=== PATIENT | male | born 1970 | race Caucasian/White ===

== ENCOUNTER 2018-08-13 04:10 | Observation (INO) ==
--- NOTE | 2018-08-13 04:36 | Emergency Department Note ---
Disposition Clinical Impression: Left-sided weakness Disposition: Still a Patient Condition: Fair Referrals: Ángel Kaur MD [Primary Care Provider] - Forms: ED Satisfaction Letter Time of Disposition: 06:21 Neuro HPI - General Chief Complaint: ED Neuro Symptoms/Deficit Stated Complaint: poss stroke Time Seen by Provider: 08/13/18 04:21 Source: patient, EMS Mode of arrival: EMS Limitations: no limitations Nursing Notes Reviewed: Yes Vital Signs Reviewed: Yes - History of Present Illness HPI Narrative: 48-year-old male history of epilepsy presents emergency department via EMS for concern of stroke. Patient presents with left-sided weakness. His last well- known was approximately 12 hours ago around 1630 prior to going to sleep. He woke up around 0230 approximately 2 hours prior to arrival trying to get out of bed when he swung his legs around he knows his legs were week and was unable to walk. He reports that similar history of this and the past may be due to his seizure. He denies any recent seizure activity and none today. He denies any injury or trauma. Denies any other pain at this time such as headache, neck pain, chest pain, shortness of breath, abdominal pain, nausea or vomiting. He has a VNS magnet Symptom Onset Unknown: Yes Location: left arm, left leg History of same: No Severity: moderate - Related Data Allergies/Adverse Reactions: Allergies Allergy/AdvReac Type Severity Reaction Status Date / Time phenytoin [From Dilantin] Allergy See Verified 03/01/17 18:41 Comments tramadol Allergy See Verified 03/01/17 18:41 Comments All systems ED: reviewed and negative except as stated. Review of Systems: As Per HPI Constitutional: Reports: weakness (Left side). Denies: fever, chills Eyes: Denies: vision change ENT ED: Denies: congestion Cardiovascular: Denies: chest pain, syncope Respiratory: Denies: dyspnea Gastrointestinal: Denies: abdominal pain, nausea, vomiting Genitourinary: Denies: dysuria Musculoskeletal: Denies: back pain, neck pain Neurological: Reports: weakness. Denies: headache, confusion Psychiatric: Denies: anxiety, depression Past Medical History - Past Medical History Attestation: Yes The following information was validated with the patient. Source: patient, obtained from family Medical history: Reports: GERD, hyperlipidemia, seizures, other Psychiatric history: Reports: no psych history - Social History Smoking Status: Never smoker Smokeless Tobacco Status: No Alcohol use: Reports: none Drug use: Reports: none Physical Exam - General Limitations: no limitations General appearance: alert, in no apparent distress - Head Head exam: atraumatic, normocephalic, normal inspection - Eye Eye exam: Present: normal appearance, PERRL, EOMI. Absent: nystagmus - ENT ENT exam: normal exam, normal oropharynx, mucous membranes moist - Expanded ENT Exam External ear exam: Present: normal external inspection Mouth exam: Present: normal external inspection Teeth exam: Present: normal inspection Throat exam: Present: normal inspection - Neck Neck exam: Present: normal inspection, full ROM, trachea midline. Absent: tenderness - Chest Chest inspection: Present: normal inspection, symmetric chest wall rise, other ( seizure VNS magnet) - Respiratory Respiratory exam: Present: normal lung sounds bilaterally. Absent: respiratory distress, wheezes - Cardiovascular Cardiovascular exam: Present: regular rate, normal rhythm, normal heart sounds - Expanded Cardiovascular Exam Peripheral pulses: 2+: radial (R), radial (L) - Abdominal Exam Abdominal exam: Present: soft, Non-Tender, normal bowel sounds. Absent: tenderness, distention, guarding, rebound, rigidity - Extremities Exam Extremities exam: Present: normal inspection, full ROM, normal capillary refill. Absent: tenderness, pedal edema - Neurological Exam Neurological exam: Present: alert, oriented X3, motor sensory deficit (left side dullness) - Expanded Neurological Exam Patient oriented to: Present: person, place, time Speech: Present: fluid speech Cranial nerves: EOM function (II, III, IV, ): Normal, facial sensation (V): Normal, facial palsy (VII): Normal, gag reflex (IX): Normal, spinal accessory function (XI): Normal, tongue deviation (XII): Normal Cerebellar function: finger to nose: Normal, heel to dodd: Abnormal Left Motor strength - LUE: 5/5 Motor strength - RUE: 5/5 Motor strength - LLE: 4/5 Motor strength - RLE: 5/5 Upper motor neuron exam: demetrice neglect: Absent bilaterally, pronator drift: Absent bilaterally Sensory exam upper extremity: light touch: Normal Sensory exam lower extremity: light touch: Normal Coma Scale Eye Opening: Spontaneous Coma Scale Motor Response: Obeys Commands Coma Scale Verbal Response: Oriented Coma Scale Total: 15 - Psychiatric Psychiatric exam: Present: normal affect, normal mood - Skin Skin exam: Present: warm, dry, intact, normal color. Absent: rash, cyanosis, diaphoresis Course Course Narrative: Patient presents with left-sided weakness presumed last well-known 12 hours ago. He is not a TPA candidate at this time. Stroke alert was initiated on arrival. He has noticeable weakness to his left upper and lower extremity. 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 He was able to lift his extremities above gravity without drift. He has some live ataxia to the left lower extremity. He is awake alert and oriented person place and time. His initial NIH score is to given his sensory deficit and limb ataxia. Glucose 130. Stroke workup initiated. - Reevaluation(s) Reevaluation #1: Patient reports improvement of his symptoms. CT did not reveal any hemorrhage. Tele-stroke with [facility] not TPA candidate no acute intervention necessary at this time recommendation for admission. Patient administered aspirin. Will obtain CTA head and neck and plan for admission. No further questions by family or patient. Time: 06:23 Reevaluation #2: Patient is pending additional imaging prior to admission. Patient will be signed out to daytime physicians Dr. Del Rosario and Teo pending imaging results and final disposition. Impression is left sided weakness concerning for stroke versus seizure. - Consultations Consultation #1: Spoke with [facility]ology regarding CT scan, no acute findings, no hemorrhage Time: 04:39 Consultation #2: Dr. Wright from [facility] evaluating patient at bedside via TeleStroke. After examination assessment agree with current plan that patient is not be a candidate. NIH score for change in sensation and ataxia. Recommend admission with additional imaging and evaluation. Recommend CT angiogram of the head neck and likely MRI of the brain. After discussion with the patient and family they wish to stay here at [facility] for further evaluation for left-sided weakness and likely stroke. At this time patient will obtain CT imaging prior to admission. He continues to reports gradual improvement of his weakness and return of his sensation. His NIH score remains added to given his ataxia of his left lower extremity and Time: 04:47 Vital Signs Temperature 98.3 F 08/13/18 04:11 Pulse Rate 78 08/13/18 04:11 Respiratory Rate 16 08/13/18 04:11 Blood Pressure 157/86 08/13/18 04:11 O2 Sat by Pulse Oximetry 97 09/12/18 04:11 Temperature 98.3 F 08/13/18 04:11 Pulse Rate 79 08/13/18 07:34 Respiratory Rate 16 08/13/18 07:34 Blood Pressure 153/82 08/13/18 07:34 O2 Sat by Pulse Oximetry 98 08/13/18 07:34 Oxygen Delivery Oxygen Delivery Room Air Neuro Symptoms/Deficit - MDM Narrative Medical decision making narrative: Patient was discussed with my attending physician who agrees with ED management and final disposition. They independently evaluated the patient. Please refer to their attestation to this encounter for additional information. This note was generated by [employer] voice recognition software and as a result grammatical or spelling errors may occur using this program. - Medical Records Medical records reviewed: Yes I reviewed the patient's medical records. - Lab Data Lab results reviewed: Yes I reviewed the patient's lab results. Result diagrams: 08/13/18 04:35 08/13/18 04:35 Lab Results 08/13/18 08/13/18 08/13/18 Range/Units 04:13 04:35 04:35 WBC 8.5 (4.3-11.1) K/mcL RBC 6.09 H (4.19-5.50) M/mcL Hgb 18.3 H (12.9-16.9) g/dL Hct 52.9 H (37.5-50.1) % MCV 86.9 (83.0-100.0) fL MCH 30.0 (28.0-33.3) pg MCHC 34.6 (31.6-35.5) g/dL RDW 15.0 H (11.5-14.5) % Plt Count 322 (140-400) K/mcL MPV 10.3 (9.4-12.4) fL Immature Gran % 0.1 (0-4) % Seg Neutrophils % 64.4 % Lymphocytes % 22.9 % Monocytes % 7.8 % Eosinophils % 3.5 % Basophils % 1.3 % Neutrophils # 5.5 (1.6-8.9) K/mcL Lymphocytes # 1.9 (0.6-4.6) K/mcL Monocytes # 0.7 (0.0-1.3) K/mcL Eosinophils # 0.3 (0.0-0.6) K/mcL Basophils # 0.1 (0.0-0.2) K/mcL PT 11.9 (9.4-12.1) Seconds INR 1.1 APTT 38.7 H (26.0-36.0) Seconds Sodium (136-145) mEq/L Potassium (3.5-5.1) mEq/L Chloride (98-107) mEq/L Carbon Dioxide (23-29) mEq/L BUN (6-20) mg/dL Creatinine (0.70-1.30) mg/dL Est GFR ( Amer) (> 60) Est GFR (Non-Af Amer) (> 60) BUN/Creatinine Ratio (6-26) Glucose (70-105) mg/dL POC Glucose 130 H (70-99) mg/dL Calculated Osmolality (280-300) Calcium (8.6-10.3) mg/dL Troponin I (< 0.04) ng/mL 08/13/18 Range/Units 04:35 WBC (4.3-11.1) K/mcL RBC (4.19-5.50) M/mcL Hgb (12.9-16.9) g/dL Hct (37.5-50.1) % MCV (83.0-100.0) fL MCH (28.0-33.3) pg MCHC (31.6-35.5) g/dL RDW (11.5-14.5) % Plt Count (140-400) K/mcL MPV (9.4-12.4) fL Immature Gran % (0-4) % Seg Neutrophils % % Lymphocytes % % Monocytes % % Eosinophils % % Basophils % % Neutrophils # (1.6-8.9) K/mcL Lymphocytes # (0.6-4.6) K/mcL Monocytes # (0.0-1.3) K/mcL Eosinophils # (0.0-0.6) K/mcL Basophils # (0.0-0.2) K/mcL PT (9.4-12.1) Seconds INR APTT (26.0-36.0) Seconds Sodium 138 (136-145) mEq/L Potassium 3.5 (3.5-5.1) mEq/L Chloride 103 (98-107) mEq/L Carbon Dioxide 26 (23-29) mEq/L BUN 7 (6-20) mg/dL Creatinine 0.93 (0.70-1.30) mg/dL Est GFR ( Amer) > 60 (> 60) Est GFR (Non-Af Amer) > 60 (> 60) BUN/Creatinine Ratio 8 (6-26) Glucose 119 H (70-105) mg/dL POC Glucose (70-99) mg/dL Calculated Osmolality 285 (280-300) Calcium 9.7 (8.6-10.3) mg/dL Troponin I < 0.03 (< 0.04) ng/mL - Radiology Data Radiology results reviewed: Yes I reviewed the patient's radiology results. Head CT 08/13/18 04:25 IMPRESSION: No acute intracranial abnormality. D/ / Reynaldo Boogie MD / Reynaldo Boogie MD Interpreting Provider: Reynaldo Boogie MD - EKG Data EKG attestation: Yes I reviewed and interpreted this EKG. EKG results narrative: EKG performed 417 normal sinus rhythm 80 beats per minute, normal axis, good R wave progression, no ST elevation or depression, intervals are within normal limits NM interval 188 QRS 104 QT 426. No acute ischemic changes. NIH Stroke Scale - Level of Consciousness LOC: Alert - LOC Questions LOC Questions: Answers both correctly - LOC Commands LOC Commands: Performs both correctly - Best Gaze Best Gaze: Normal - Visual Visual: No visual loss - Facial Palsy Facial Palsy: Normal - Motor Arms Motor Arm-Left: No drift for 10 seconds Motor Arm-Right: No drift for 10 seconds - Motor Legs Motor Leg-Left: No drift for 5 seconds Motor Leg-Right: No drift for 5 seconds - Limb Ataxia Limb Ataxia: Present in ONE limb - Sensory Sensory: Mild to moderate loss, "not as sharp" - Best Language Best Language: No aphasia - Dysarthria Dysarthria: Normal - Extinction and Inattention Extinction and Inattention: Normal - NIHSS Total Score NIHSS Total Score: 2 TPA Checklist - Eligibilty for IV tPA 1. LKW equal to or less than 4.5 hours be before treatment: No S.B.A.R. - S.B.A.R. Situation: Demographics, MOA Background: Presenting Complaint, Relevant PMH, Meds, & Allergies Assessment: Vital Signs, Course and respsone to treatment, Exam Concerns, Patient/Family Expectation, Pertinant Lab Results, Outstanding Labs Recommendation: Barrier(s) to disposition, Recommendation based on pending studies, treatments, or consults S.B.A.R. Report Given to: Annalisa Luque Repor Time: 07:00
[2018-08-13 04:45] LABS: Basophils # 0.1 K/mcL (0.0-0.2); Basophils % 1.3 %; Eosinophils # 0.3 K/mcL (0.0-0.6); Eosinophils % 3.5 %; Hematocrit 52.9 % (37.5-50.1); Hemoglobin 18.3 g/dL (12.9-16.9); Immature Granulocytes % 0.1 % (0-4); Lymphocytes # 1.9 K/mcL (0.6-4.6); Lymphocytes % 22.9 %; Mean Corpuscular HGB Conc 34.6 g/dL (31.6-35.5); Mean Corpuscular Volume 86.9 fL (83.0-100.0); Mean Platelet Volume 10.3 fL (9.4-12.4); Monocytes # 0.7 K/mcL (0.0-1.3); Monocytes % 7.8 %; Neutrophils # 5.5 K/mcL (1.6-8.9); Platelet Count 322 K/mcL (140-400); Red Blood Count 6.09 M/mcL (4.19-5.50); Segmented Neutrophils % 64.4 %
[2018-08-13 04:48] LABS: INR 1.1; Prothrombin Time 11.9 Seconds (9.4-12.1)
[2018-08-13 04:51] LABS: Activated Partial Thrombo Time 38.7 Seconds (26.0-36.0)
[2018-08-13 05:03] LABS: BUN/Creatinine Ratio 8 (6-26); Blood Urea Nitrogen 7 mg/dL (6-20); Calcium 9.7 mg/dL (8.6-10.3); Carbon Dioxide 26 mEq/L (23-29); Chloride 103 mEq/L (98-107); Glucose 119 mg/dL (70-105); Osmolality,Calculated 285 (280-300); Potassium 3.5 mEq/L (3.5-5.1); Sodium 138 mEq/L (136-145); Troponin I < 0.03 ng/mL (< 0.04); eGFR For Non-African Americans > 60 (> 60)
[2018-08-13] MEDS ORDERED: Isovue-370 500 ML INFUS..BTL IV ONE (05:14)
[2018-08-13] MEDS ORDERED: Aspirin 325 MG TABLET PO ONE (06:57)
--- NOTE | 2018-08-13 07:37 | Emergency Department Note ---
Disposition Clinical Impression: Left-sided weakness Disposition: Still a Patient Condition: Fair Referrals: Ángel Kaur MD [Primary Care Provider] - Forms: ED Satisfaction Letter General Adult HPI - General Chief complaint: ED Neuro Symptoms/Deficit Stated complaint: poss stroke Time Seen by Provider: 08/13/18 04:21 Source: patient, EMS Mode of arrival: EMS Limitations: no limitations Nursing Notes Reviewed: Yes Vital Signs Reviewed: Yes - History of Present Illness Pain Scale: 0 - Related Data Allergies Allergy/AdvReac Type Severity Reaction Status Date / Time phenytoin [From Dilantin] Allergy See Verified 03/01/17 18:41 Comments tramadol Allergy See Verified 03/01/17 18:41 Comments Constitutional: Reports: weakness (Left side). Denies: fever, chills Eyes: Denies: vision change ENT ED: Denies: congestion Cardiovascular: Denies: chest pain, syncope Respiratory: Denies: dyspnea Gastrointestinal: Denies: abdominal pain, nausea, vomiting Genitourinary: Denies: dysuria Musculoskeletal: Denies: back pain, neck pain Neurological: Reports: weakness. Denies: headache, confusion Psychiatric: Denies: anxiety, depression Past Medical History - Past Medical History Medical history: Reports: GERD, hyperlipidemia, seizures, other Psychiatric history: Reports: no psych history - Social History Smoking Status: Never smoker Smokeless Tobacco Status: No Alcohol use: Reports: none Drug use: Reports: none Physical Exam - General Limitations: no limitations General appearance: alert, in no apparent distress Course Vital Signs Temperature 98.3 F 08/13/18 04:11 Pulse Rate 78 08/13/18 04:11 Respiratory Rate 16 08/13/18 04:11 Blood Pressure 157/86 08/13/18 04:11 O2 Sat by Pulse Oximetry 97 08/13/18 04:11 Temperature 98.3 F 08/13/18 04:11 Pulse Rate 79 08/13/18 07:34 Respiratory Rate 16 08/13/18 07:34 Blood Pressure 153/82 08/13/18 07:34 O2 Sat by Pulse Oximetry 98 08/13/18 07:34 Oxygen Delivery Oxygen Delivery Room Air Medical Decision Making - Lab Data Lab results reviewed: Yes I reviewed the patient's lab results. Result diagrams: 08/13/18 04:35 08/13/18 04:35 Lab Results 08/13/18 08/13/18 08/13/18 Range/Units 04:35 04:35 04:35 WBC 8.5 (4.3-11.1) K/mcL RBC 6.09 H (4.19-5.50) M/mcL Hgb 18.3 H (12.9-16.9) g/dL Hct 52.9 H (37.5-50.1) % MCV 86.9 (83.0-100.0) fL MCH 30.0 (28.0-33.3) pg MCHC 34.6 (31.6-35.5) g/dL RDW 15.0 H (11.5-14.5) % Plt Count 322 (140-400) K/mcL MPV 10.3 (9.4-12.4) fL Immature Gran % 0.1 (0-4) % Seg Neutrophils % 64.4 % Lymphocytes % 22.9 % Monocytes % 7.8 % Eosinophils % 3.5 % Basophils % 1.3 % Neutrophils # 5.5 (1.6-8.9) K/mcL Lymphocytes # 1.9 (0.6-4.6) K/mcL Monocytes # 0.7 (0.0-1.3) K/mcL Eosinophils # 0.3 (0.0-0.6) K/mcL Basophils # 0.1 (0.0-0.2) K/mcL PT 11.9 (9.4-12.1) Seconds INR 1.1 APTT 38.7 H (26.0-36.0) Seconds Sodium 138 (136-145) mEq/L Potassium 3.5 (3.5-5.1) mEq/L Chloride 103 (98-107) mEq/L Carbon Dioxide 26 (23-29) mEq/L BUN 7 (6-20) mg/dL Creatinine 0.93 (0.70-1.30) mg/dL Est GFR ( Amer) > 60 (> 60) Est GFR (Non-Af Amer) > 60 (> 60) BUN/Creatinine Ratio 8 (6-26) Glucose 119 H (70-105) mg/dL Calculated Osmolality 285 (280-300) Calcium 9.7 (8.6-10.3) mg/dL Troponin I < 0.03 (< 0.04) ng/mL - Radiology Data Radiology results reviewed: Yes I reviewed the patient's radiology results. Head CT 08/13/18 04:25 IMPRESSION: No acute intracranial abnormality. D/ / 08/13/2018 07:18:21 Reynaldo Boogie MD / [email or web address] Interpreting Provider: Reynaldo Boogie MD - EKG Data EKG #1 EKG attestation: Yes I reviewed and interpreted this EKG. EKG results narrative: EKG shows a normal sinus rhythm with ventricular rate of 80. No acute ST segment elevation or depression. No arrhythmia or ectopy. Critical Care Time Critical Care Time: Yes Total Critical Care Time: 45 Attestation: Critical care performed: Time is exclusive of separately billable procedures. Time includes: direct patient care, patient reassessment, coordination of patient care, interpretation of data (laboratory data, radiology data, and respiratory data), review of patient's medical records, medical consultation and documentation of patient care. Procedures included in critical care time: Procedures excluded from critical care time: Attestation Statement - Attestation Attestation: I, Rafy Garnica MD, personally evaluated this patient and discussed their management with the resident physician. I reviewed the resident's note and agree with the documented findings, medical decision making, and plan of care. 48-year-old male presents to the emergency department with a complaint of left- sided weakness. Last known well was 4 PM yesterday when patient went to bed. He awoke about 2:30 this morning and went to get out of bed and fell to the left side. He states he was unable to use his left side. No difficulty with speech or swallowing. Symptoms have improved since onset. He has had somewhat similar episodes in the past but not as bad. He does have a history of seizure disorder and does not know if he maybe had a seizure during his sleep. He admits to some mild headache. Otherwise he denies any pain. No chest pain or shortness of breath. No fever. He has not been ill recently. On examination patient is a well-developed well-nourished male in no acute distress. He is alert and oriented 3. There is no cyanosis or diaphoresis. Speech is clear. No facial droop. He does have mild motor weakness of the left upper and lower extremity. Neck is supple and nontender with no meningismus. Breath sounds are clear and equal bilaterally. Heart regular rate and rhythm. Abdomen soft and nontender with normal bowel sounds. Head CT without contrast was negative. Labs reviewed. No acute changes on EKG. A stroke alert was called and after evaluation by the stroke neurologist from [facility] via the stroke robot it was felt patient was not a TPA candidate. They recommended obtaining a CTA of the head and neck and if no significant abnormalities patient could be managed here. Patient agreeable with this plan. At shift change patient is still awaiting the CTA of the head and neck and is signed out to the oncoming dayshift team, Dr. Del Rosario and Dr. Liang Bruce.
--- NOTE | 2018-08-13 07:45 | Emergency Department Note ---
Disposition Clinical Impression: Left-sided weakness Disposition: Admitted As Inpatient Condition: Fair Referrals: Ángel Kaur MD [Primary Care Provider] - Forms: ED Satisfaction Letter Time of Disposition: 08:22 General Adult HPI - General Chief complaint: ED Neuro Symptoms/Deficit Stated complaint: poss stroke Time Seen by Provider: 08/13/18 04:21 Source: patient, EMS Mode of arrival: EMS Limitations: no limitations Nursing Notes Reviewed: Yes Vital Signs Reviewed: Yes - History of Present Illness Pain Scale: 0 - Related Data Allergies Allergy/AdvReac Type Severity Reaction Status Date / Time phenytoin [From Dilantin] Allergy See Verified 03/01/17 18:41 Comments tramadol Allergy See Verified 03/01/17 18:41 Comments Constitutional: Reports: weakness (Left side). Denies: fever, chills Eyes: Denies: vision change ENT ED: Denies: congestion Cardiovascular: Denies: chest pain, syncope Respiratory: Denies: dyspnea Gastrointestinal: Denies: abdominal pain, nausea, vomiting Genitourinary: Denies: dysuria Musculoskeletal: Denies: back pain, neck pain Neurological: Reports: weakness. Denies: headache, confusion Psychiatric: Denies: anxiety, depression Past Medical History - Past Medical History Medical history: Reports: GERD, hyperlipidemia, seizures, other Psychiatric history: Reports: no psych history - Social History Smoking Status: Never smoker Smokeless Tobacco Status: No Alcohol use: Reports: none Drug use: Reports: none Physical Exam - General Limitations: no limitations General appearance: alert, in no apparent distress Course Course Narrative: Assumed care from day physician's Dr. Parker and Dr. Garnica. Briefly, patient woke up with left-sided weakness 2 hours prior to arrival. His last known well is over 12 hours ago. NIH score of 2 for ataxia and decreased sensation. CVA workup including labs, CT scan unremarkable so far. He is pending a CTA of the head and neck. - Reevaluation(s) Reevaluation #1: Imaging unremarkable. We will admit for CVA workup. I discussed with the hospitalist was accepted patient for admission. Patient is unable to get an MRI due to his vagal nerve stimulator. States last time they did get someone to turn it off to get him over to an MRI but then he was unable to tolerate the actual MRI even with being medicated. Time: 08:21 Vital Signs Temperature 98.3 F 08/13/18 04:11 Pulse Rate 78 08/13/18 04:11 Respiratory Rate 16 08/13/18 04:11 Blood Pressure 157/86 08/13/18 04:11 O2 Sat by Pulse Oximetry 97 08/13/18 04:11 Temperature 98.3 F 08/13/18 04:11 Pulse Rate 79 08/13/18 07:34 Respiratory Rate 16 08/13/18 07:34 Blood Pressure 153/82 08/13/18 07:34 O2 Sat by Pulse Oximetry 98 08/13/18 07:34 Oxygen Delivery Oxygen Delivery Room Air Medical Decision Making - Medical Records Medical records reviewed: Yes I reviewed the patient's medical records. - Lab Data Lab results reviewed: Yes I reviewed the patient's lab results. Result diagrams: 08/13/18 04:35 08/13/18 04:35 Lab Results 08/13/18 08/13/18 08/13/18 Range/Units 04:13 04:35 04:35 WBC 8.5 (4.3-11.1) K/mcL RBC 6.09 H (4.19-5.50) M/mcL Hgb 18.3 H (12.9-16.9) g/dL Hct 52.9 H (37.5-50.1) % MCV 86.9 (83.0-100.0) fL MCH 30.0 (28.0-33.3) pg MCHC 34.6 (31.6-35.5) g/dL RDW 15.0 H (11.5-14.5) % Plt Count 322 (140-400) K/mcL MPV 10.3 (9.4-12.4) fL Immature Gran % 0.1 (0-4) % Seg Neutrophils % 64.4 % Lymphocytes % 22.9 % Monocytes % 7.8 % Eosinophils % 3.5 % Basophils % 1.3 % Neutrophils # 5.5 (1.6-8.9) K/mcL Lymphocytes # 1.9 (0.6-4.6) K/mcL Monocytes # 0.7 (0.0-1.3) K/mcL Eosinophils # 0.3 (0.0-0.6) K/mcL Basophils # 0.1 (0.0-0.2) K/mcL PT 11.9 (9.4-12.1) Seconds INR 1.1 APTT 38.7 H (26.0-36.0) Seconds Sodium (136-145) mEq/L Potassium (3.5-5.1) mEq/L Chloride (98-107) mEq/L Carbon Dioxide (23-29) mEq/L BUN (6-20) mg/dL Creatinine (0.70-1.30) mg/dL Est GFR ( Amer) (> 60) Est GFR (Non-Af Amer) (> 60) BUN/Creatinine Ratio (6-26) Glucose (70-105) mg/dL POC Glucose 130 H (70-99) mg/dL Calculated Osmolality (280-300) Calcium (8.6-10.3) mg/dL Troponin I (< 0.04) ng/mL 08/13/18 Range/Units 04:35 WBC (4.3-11.1) K/mcL RBC (4.19-5.50) M/mcL Hgb (12.9-16.9) g/dL Hct (37.5-50.1) % MCV (83.0-100.0) fL MCH (28.0-33.3) pg MCHC (31.6-35.5) g/dL RDW (11.5-14.5) % Plt Count (140-400) K/mcL MPV (9.4-12.4) fL Immature Gran % (0-4) % Seg Neutrophils % % Lymphocytes % % Monocytes % % Eosinophils % % Basophils % % Neutrophils # (1.6-8.9) K/mcL Lymphocytes # (0.6-4.6) K/mcL Monocytes # (0.0-1.3) K/mcL Eosinophils # (0.0-0.6) K/mcL Basophils # (0.0-0.2) K/mcL PT (9.4-12.1) Seconds INR APTT (26.0-36.0) Seconds Sodium 138 (136-145) mEq/L Potassium 3.5 (3.5-5.1) mEq/L Chloride 103 (98-107) mEq/L Carbon Dioxide 26 (23-29) mEq/L BUN 7 (6-20) mg/dL Creatinine 0.93 (0.70-1.30) mg/dL Est GFR ( Amer) > 60 (> 60) Est GFR (Non-Af Amer) > 60 (> 60) BUN/Creatinine Ratio 8 (6-26) Glucose 119 H (70-105) mg/dL POC Glucose (70-99) mg/dL Calculated Osmolality 285 (280-300) Calcium 9.7 (8.6-10.3) mg/dL Troponin I < 0.03 (< 0.04) ng/mL - Radiology Data Radiology results reviewed: Yes I reviewed the patient's radiology results. Head CT 08/13/18 04:25 IMPRESSION: No acute intracranial abnormality. D/ / 08/13/2018 07:18:21 Reynaldo Boogie MD / lori Interpreting Provider: Reynaldo Boogie MD Head CTA 08/13/18 05:14 IMPRESSION: No flow limiting stenosis or occlusion involving the major intracranial or extracranial arterial vasculature. D/ / Raul Villanueva MD / Raul Villanueva MD Interpreting Provider: Raul Villanueva MD Neck CTA 08/13/18 05:14 IMPRESSION: No flow limiting stenosis or occlusion involving the major intracranial or extracranial arterial vasculature. D/ / Raul Villanueva MD / Raul Villanueva MD Interpreting Provider: Raul Villanueva MD - EKG Data EKG #1 EKG attestation: Yes I reviewed and interpreted this EKG. EKG results narrative: EKG done at 414 shows normal sinus rhythm with a rate of [address] elevation or depression noted. Normal axis. Poor wandering baseline artifact.
[2018-08-13] MEDS ORDERED: Naloxone 0.4 MG/ML INJ IVP PRN (08:25)
--- NOTE | 2018-08-13 08:39 | Emergency Department Note ---
START Narrative - START START: Patient was signed out to me from the night physician. Plan was to follow-up CTA of the head and neck. Admit the patient. CT of the head and neck is nonacute. No acute pathology. Patient is doing well. He has not a TPA candidate. He does have a underlying history of seizures. It is unclear whether he had a seizure prior to this. Admit.
[2018-08-13] MEDS: lamoTRIgine 100 MG TABLET PO SCH ×2 (09:00→20:17)
--- NOTE | 2018-08-13 10:16 | Electrocardiograph Report ---
[facility] Test Date: 2018-08-13 Pat Name: Myels Chavez Department: [id number] Room: Gender: M Search Advertising Strategist: : 1970 Requested By: Liang Bruce Order Number: [id number] Reading MD: Tunde Hauser Measurements Intervals [place] Rate: 80 P: 60 [place]: 198 QRS: 9 QRSD: 104 T: 52 QT: 426 QTc: 492 Interpretive Statements Sinus rhythm Consider left atrial enlargement Borderline prolonged QT interval Electronically Signed On 08-13-2018 10:15:11 EDT by Tunde Hauser
--- NOTE | 2018-08-13 10:34 | Internal Med History&Physical ---
Date of Encounter: 08/13/18 Time of Encounter: 10:00 Internal Medicine - H&P: HPI Chief complaint: left sided weakness and dizziness of 1 day duration History of present illness: Mr. Chavez is a 48 year old male with pmh of seizures/ epilepsy s/p vagal nerves stimulator implantation presenting with complaints of waking up with left sided weakness around 2.30am today. Patient notes he had an uneventful day and went to sleep around 4.30pm the previous day. When he woke up he was unable to stand up and says he kept falling over to his right side and feels like he couldn't move his left hand and left leg and was dizzy. He called his daughter who came in to the house at around 2.45am and noted he had no strength on his left side and couldn't squeeze her hands with his left hand ad couldn't wiggle his toes. She also noted he couldn't recall any events from the previous day. EMS was therefore called. At this time, he seems to have regained full strength and sensation in his left side which he says gradually returned. In the ER, [facility] was contacted who determined he is not a TPA candiate. CT head and CTA head came back negative. He was given one dose of aspirin 325mg. Past Med Surg Social Fam HX - Past Medical History Medical history: GERD, hyperlipidemia, seizures, other Psychiatric history: no psych history - Past Surgical History Additional surgical history: VNS implantation, kidney stent - Social History Smoking Status: Never smoker Smokeless Tobacco Status: No Alcohol use: none Drug use: none Internal Medicine - H&P: Meds 3 Allergy/AdvReac Type Severity Reaction Status Date / Time phenytoin [From Dilantin] Allergy See Verified 03/01/17 18:41 Comments tramadol Allergy See Verified 03/01/17 18:41 Comments All Systems PM: A 10-system review of systems was performed and is negative for pertinent findings except as documented above in the HPI. - Constitutional Constitutional: no chills, no fever(s), no night sweats - EENT Eyes: no change in vision, no discharge, no pain, no photophobia Ears: no ear discharge, no ear pain, no tinnitus Nose, mouth and throat: no dysphagia, no nasal discharge, no neck pain, no sore throat - Cardiovascular Cardiovascular ROS IM: no chest pain, no diaphoresis, no dyspnea, no lightheadedness, no palpitations, no syncope - Respiratory Respiratory: no cough, no dyspnea, no wheezing, no excessive phlegm production - Gastrointestinal Gastrointestinal: no abdominal pain, no diarrhea, no hematemesis, no hematochezia, no melena, no nausea, no vomiting - Musculoskeletal Musculoskeletal ROS IM: no numbness, no tingling - Integumentary Integumentary IM: no rash, no unusual bruising - Neurological Neurological ROS: focal weakness, memory loss, numbness, no confusion, no convulsions, no tingling, no tremor(s) - Hematologic/Lymphatic Hematologic/Lymphatic: no easy bruising - Constitutional Vitals: Temp Pulse Resp BP Pulse Ox 98.3 F 79 16 153/82 98 08/13/18 04:11 08/13/18 07:34 08/13/18 07:34 08/13/18 07:34 08/13/18 07:34 Exam: NAD - Head Head exam: Present: atraumatic, normocephalic - Eye Eye exam: Present: PERRL, conjuntiva pink, sclera anicteric Pupils: Present: PERRL - Neck Neck exam general surgery: Present: supple, trachea midline. Absent: lymphadenopathy - Respiratory Respiratory exam: Present: CTAB. Absent: accessory muscle use, rales, rhonchi, wheezes - Cardiovascular Cardiovascular exam: Present: RRR, +S1, +S2. Absent: diastolic murmur, gallop, rubs, systolic murmur - GI/Abdominal GI/Abdominal exam: Present: normal bowel sounds, soft, no peritoneal signs. Absent: distended, tenderness - Extremities Exam Extremities exam: Present: warm, radial pulses palpable and symmetrical. Absent : calf tenderness, cyanotic, pedal edema - Neurological Exam Neurological exam: Present: CN II-XII intact, oriented X3, no focal deficits. Absent: pronater drift, facial droop, speech deficit - Skin Skin exam: Present: dry, intact Internal Med - H&P Results - Labs CBC & Chem 7: 08/13/18 04:35 08/13/18 04:35 - Assessment and plan (1) Acute CVA (cerebrovascular accident) Current Visit: Yes Status: Acute Assessment and plan: Pt woke up with left sided weakness which persisted till he got to the hospital CT head and CTA head negative. Neurology consulted and recommend MRI but patent has a vagal nerve stimulator which needs to be turned off by a specialist prior to obtaining MRI Neurology therefore recommend outpatient MRI since his symptoms have resolved. Started on aspirin and lipitor Obtain 2D echo and carotid ultrasound (2) Seizures Current Visit: Yes Status: Acute Assessment and plan: Has vagal nerve stimulator. Stable (3) DVT prophylaxis Current Visit: Yes Status: Acute Assessment and plan: On heparin sc - Time Spent With Patient Total time spent is greater than 50% in coordination of care (as documented) at patient's floor/unit and/or counseling patient:
--- NOTE | 2018-08-13 11:29 | Neurology - Consult Note ---
<Krysten Miller P - Last Filed: 08/13/18 11:16> Date of Encounter: 08/13/18 Time of Encounter: 11:15 Assessment and Plan (1) Acute CVA (cerebrovascular accident) Current Visit: Yes Status: Acute He has left sided weakness for 2-3 hours Now he doesn't have any weakness in left limbs CTA head and CT head negative for blood clot or acute intracranial pathology Patient of seizure under regular medication Pt is young and didn't see obvious risk factors for stroke already on Aspirin and lipitor History of Present Illness Chief complaint: TIA HPI: Mr. Chavez is a 48 year old male with diagnoses of seizures (with vagal nerves stimulator implantation ) presented at [facility] ED for sudden onset of left sided weakness lasted for about 3 hours . The symptoms started around 2.30 AM and started gaining recovery and have significant recover at 5.30 AM.He was a case of seizure disorder for last 10 years and taking medication regularly and he has on and off breakthrough seizure ,last episode was on last Saturday. Now he e is on lamotrigin 100 mg and aspirin 325 mg and lipitor 40 mg. In ER, [facility] was contacted who determined he is not a TPA candiate. CT head and CTA head came back negative. Now he is lying comfortably in bed, hemodynamically stable,. He states that his symptoms has been resolved except feeling a little bit dizzy since this morning Vitals: BP 129/84, pulse 82, sat 97% Lab : WBC 8.5,na 138, K 3.5 , glucose 119 CTA head : No flow limiting stenosis or occlusion involving the major intracranial or extracranial arterial vasculature. CT head :No flow limiting stenosis or occlusion involving the major intracranial or extracranial arterial vasculature. Past Med Surg Social Fam HX - Past Medical History Medical history: GERD, hyperlipidemia, seizures, other Psychiatric history: no psych history - Past Surgical History Additional surgical history: VNS implantation, kidney stent - Social History Smoking Status: Never smoker Smokeless Tobacco Status: No Alcohol use: none Drug use: none Medications and Allergies ALPRAZolam [Xanax 1 MG Tablet] 1 mg PO TID 08/13/18 [History] Aspirin [Lo-Dose Aspirin EC] 81 mg PO DAILY 08/13/18 [History] Atorvastatin [Lipitor] 40 mg PO HS 08/13/18 [History] Diazepam [Diastat Acudial] 10 mg RC ONCE PRN 08/13/18 [History] Lacosamide [Vimpat] 50 mg PO BID 08/13/18 [History] Lacosamide [Vimpat] 200 mg PO BID 08/13/18 [History] Omeprazole [PriLOSEC] 20 mg PO DAILY 08/13/18 [History] Oxycodone HCl/Acetaminophen [Percocet 10-325 mg Tablet] 1 tab PO Q6H PRN [History] lamoTRIgine [Lamictal] 25 mg PO QAM 08/13/18 [History] lamoTRIgine [Lamictal] 50 mg PO HS 08/13/18 [History] lamoTRIgine [Lamictal] 200 mg PO BID 08/13/18 [History] 3 Allergy/AdvReac Type Severity Reaction Status Date / Time phenytoin [From Dilantin] Allergy See Verified 03/01/17 18:41 Comments tramadol Allergy See Verified 03/01/17 18:41 Comments All Systems: The remainder of the systems were reviewed and are negative Physical Examination - Vital Signs Vital Signs: Initial Vital Signs Temp Pulse Resp BP Pulse Ox 98.3 F 78 16 157/86 97 08/13/18 04:11 08/13/18 04:11 08/13/18 04:11 08/13/18 04:11 08/13/18 04:11 - Constitutional General appearance: comfortable - Neurologic Sensorimotor examination: intact Detailed motor examination: full strength in all major muscle groups Motor examination - right side: 5/5: deltoids, biceps, triceps, wrist flexion, wrist extension, bank teller machine mechanic, hip flexors, tibialis Anterior, quadriceps, toe extension (EHL), plantarflexion Motor examination - left side: 5/5: deltoids, biceps, triceps, wrist flexion, wrist extension, hip flexors, bank teller machine mechanic, quadriceps, tibialis Anterior, toe extension (EHL), plantarflexion Detailed sensory examination: intact Reflex and gait examination: intact Reflexes: Biceps: 2+, Triceps: 2+, Brachioradialis: 2+, Patella: 2+, Achilles: 2 + Mental Status Examination: awake, alert, oriented to person, oriented to place, oriented to time, follows commands appropriately, answers questions appropriately, no aphasia Cerebellar examination: no dysmetria, performs finger to nose and heel to dodd symmetrically without ataxia, no gait ataxia Results - Laboratory Findings CBC and BMP: 08/13/18 04:35 08/13/18 04:35 Abnormal lab findings: Abnormal lab results RBC 6.09 M/mcL (4.19-5.50) H 08/13/18 04:35 Hgb 18.3 g/dL (12.9-16.9) H 08/13/18 04:35 Hct 52.9 % (37.5-50.1) H 08/13/18 04:35 RDW 15.0 % (11.5-14.5) H 08/13/18 04:35 APTT 38.7 Seconds (26.0-36.0) H 08/13/18 04:35 Glucose 119 mg/dL (70-105) H 08/13/18 04:35 POC Glucose 130 mg/dL (70-99) H 08/13/18 04:13 Consult Discharge Plan - Plan Referrals: Ángel Kaur MD [Primary Care Provider] - <Ronnie Bradford I - Last Filed: 08/13/18 13:46> Date of Encounter: 08/13/18 Assessment and Plan (1) Left-sided weakness Current Visit: Yes Status: Acute Pt was seen and examined, my medical decision was reviewed with the Resident Physician, I agree with the documented findings, disposition and treatment plas as described except to the extent set forth below Patient is known to me from office visits he has an 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 Most recently he has adjustment of his VNS stimulator and his dose of Vimpat has been increased Patient did have an spell several months ago when he was weak in his both lower extremities then resolving spontaneously after 24 hours at that time as was thought that it was related to the seizure. Even this event when patient woke up in the morning he was weak and according to the daughter who has seen him earlier that he was awake and alert but when she saw him late-night though he was awake and he was able to have conversation but he was confused. Patient not able to recall anything from yesterday. Now he is back to his baseline. On examination he is alert awake and oriented is clean and nerves are all intact motor sensory cerebellar testing is all within normal limit there is no focal neurological deficit. CT scan of the head and CT angiogram of the head and neck is been negative. Those is a possibility that it could be a TIA but considering this patient overall symptoms history and exam I suspect that he probably had a Leopoldo paralysis after having a complex partial seizures without any convulsion. Though TIA remains in the differential I have suggested that he should continue on an aspirin on a regular basis At the same time he can do an echocardiogram to complete the stroke workup Not able to get an MRI because of the stimulator but at the moment even if he do an MRI is likely not going to show any acute vascular abnormality especially when his exam is completely back to normal. I suggest that patient should continue on the current dose of the Vimpat Continue on 325 mg of aspirin After echocardiogram is negative he could be discharged to home Follow up with his neurologist at [facility] for continued management of seizures and adjustment of his VNS stimulator Discussed with the patient in detail agrees with the plan Ronnie Bradford MD History of Present Illness HPI: Mr. Chavez is a 48 year old male All Systems: The remainder of the systems were reviewed and are negative Physical Examination - Vital Signs Vital Signs: Initial Vital Signs Temp Pulse Resp BP Pulse Ox 98.3 F 78 16 157/86 97 08/13/18 04:11 08/13/18 04:11 08/13/18 04:11 08/13/18 04:11 08/13/18 04:11 Results - Laboratory Findings CBC and BMP: 08/13/18 04:35 08/13/18 04:35 Abnormal lab findings: Abnormal lab results RBC 6.09 M/mcL (4.19-5.50) H 08/13/18 04:35 Hgb 18.3 g/dL (12.9-16.9) H 08/13/18 04:35 Hct 52.9 % (37.5-50.1) H 08/13/18 04:35 RDW 15.0 % (11.5-14.5) H 08/13/18 04:35 APTT 38.7 Seconds (26.0-36.0) H 08/13/18 04:35 Glucose 119 mg/dL (70-105) H 08/13/18 04:35 POC Glucose 130 mg/dL (70-99) H 08/13/18 04:13
[2018-08-13] MEDS: *HR* Heparin 5,000 UNIT/ML VIAL SQ SCH (18:53)
[2018-08-14] MEDS: *HR* Heparin 5,000 UNIT/ML VIAL SQ SCH ×2 (05:48→18:33)
[2018-08-14 06:13] LABS: Basophils # 0.1 K/mcL (0.0-0.2); Basophils % 1.2 %; Eosinophils # 0.2 K/mcL (0.0-0.6); Eosinophils % 2.5 %; Hematocrit 48.4 % (37.5-50.1); Immature Granulocytes % 0.1 % (0-4); Lymphocytes # 2.7 K/mcL (0.6-4.6); Lymphocytes % 40.3 %; Mean Corpuscular HGB Conc 33.9 g/dL (31.6-35.5); Mean Corpuscular Hemoglobin 29.3 pg (28.0-33.3); Mean Corpuscular Volume 86.6 fL (83.0-100.0); Mean Platelet Volume 10.3 fL (9.4-12.4); Monocytes # 0.6 K/mcL (0.0-1.3); Monocytes % 9.1 %; Neutrophils # 3.1 K/mcL (1.6-8.9); Platelet Count 298 K/mcL (140-400); Red Blood Count 5.59 M/mcL (4.19-5.50); Red Cell Distribution Width 15.5 % (11.5-14.5); Segmented Neutrophils % 46.8 %
[2018-08-14 06:25] LABS: Hemoglobin 16.4 g/dL (12.9-16.9)
[2018-08-14 06:35] LABS: BUN/Creatinine Ratio 11 (6-26); Blood Urea Nitrogen 11 mg/dL (6-20); Calcium 9.2 mg/dL (8.6-10.3); Carbon Dioxide 27 mEq/L (23-29); Chloride 104 mEq/L (98-107); Glucose 100 mg/dL (70-105); Magnesium 2.2 mg/dL (1.6-2.6); Osmolality,Calculated 283 (280-300); Phosphorous 3.7 mg/dL (2.7-4.5); Potassium 3.5 mEq/L (3.5-5.1); Sodium 137 mEq/L (136-145); eGFR For Non-African Americans > 60 (> 60)
[2018-08-14] MEDS ORDERED: Aspirin 81 MG TAB.CHEW PO SCH (09:00)
[2018-08-14] MEDS ORDERED: Aspirin 325 MG TABLET PO SCH (09:00)
--- NOTE | 2018-08-14 13:21 | Neurology Progress Note ---
<Krysten Miller P - Last Filed: 08/14/18 13:28> Date of Encounter: 08/14/18 Time of Encounter: 11:00 Assessment and Plan (1) Acute CVA (cerebrovascular accident) Current Visit: Yes Status: Acute He has left sided weakness for 2-3 hours Now he doesn't have any weakness in left limbs CTA head and CT head negative for blood clot or acute intracranial pathology Patient of seizure under regular medication Pt is young and didn't see obvious risk factors for stroke Echo: LVEF 65% , mild LVDD Carotid Doppler: B/L non stenotic plague Already on Aspirin and lipitor Continue seizure medication Subjective Principal diagnosis: TIA evaluation Interval history: Today is 2nd day of admission. Mr. Chavez is a 48 year old male with diagnoses of seizures (with vagal nerves stimulator implantation ) presented at [facility] ED for sudden onset of left sided weakness lasted for about 3 hours. Today he is lying comfortably in bed, hemodynamically stable. He states that his symptoms (his dizziness, weakness in arms) has been resolved completely has been resolved , He doesn't have any new complaints or concerns. He is ready to go home . Vitals: BP 138/81, pulse 82, sat 95% Lab : WBC 6.7 ,na 137, K 3.5 , glucose 100 CTA head : No flow limiting stenosis or occlusion involving the major intracranial or extracranial arterial vasculature. CT head :No flow limiting stenosis or occlusion involving the major intracranial or extracranial arterial vasculature. ECHO; LVEF 65% , mild LVDF Carotid doppler : non stenotic plaque B/L Objective - Constitutional Vitals: Temp Pulse Resp BP Pulse Ox 98.8 F 76 20 138/81 95 08/14/18 11:40 08/14/18 11:40 08/14/18 11:40 08/14/18 11:40 08/14/18 11:40 - Neurological Exam Sensorimotor examination: Present: intact Motor Examination: Present: full strength in all major muscle groups Motor examination - right side: 5/5: deltoids, biceps, triceps, wrist flexion, wrist extension, consumer analyst, hip flexors, tibialis Anterior, quadriceps, toe extension (EHL), plantarflexion Motor examination - left side: 5/5: deltoids, biceps, triceps, wrist flexion, wrist extension, hip flexors, consumer analyst, quadriceps, tibialis Anterior, toe extension (EHL), plantarflexion Sensation intact: Present: intact Reflex and gait examination: intact Mental Status Examination: Present: awake, alert, oriented to person, oriented to place, oriented to time, follows commands appropriately, answers questions appropriately, no aphasia Cerebellar examination: Present: no dysmetria, performs finger to nose and heel to dodd symmetrically without ataxia, no gait ataxia Results - Laboratory Findings CBC and BMP: 08/14/18 05:45 08/14/18 05:45 Abnormal lab findings: Abnormal lab results RBC 5.59 M/mcL (4.19-5.50) H 08/14/18 05:45 RDW 15.5 % (11.5-14.5) H 08/14/18 05:45 APTT 38.7 Seconds (26.0-36.0) H 08/13/18 04:35 POC Glucose 130 mg/dL (70-99) H 08/13/18 04:13 Consult Discharge Plan - Plan Referrals: Ángel Kaur MD [Primary Care Provider] - <Ronnie Bradford I - Last Filed: 08/14/18 16:37> Date of Encounter: 08/14/18 Assessment and Plan (1) Left-sided weakness Current Visit: Yes Status: Acute Pt was seen and examined, my medical decision was reviewed with the Resident Physician, I agree with the documented findings, disposition and treatment plas as described except to the extent set forth below This no evidence of any CVA on MRI of the brain possibility of a TIA but the description sounds more of Leopoldo paralysis and less likely a TIA. His a stroke workup including echo and carotid is been negative suggest that he should continue on aspirin along with statin and continue on his seizure medication and follow-up with neurology as outpatient in [place] for the adjustment of his seizure medication and VNS stimulator Ronnie Bradford MD Objective - Constitutional Vitals: Temp Pulse Resp BP Pulse Ox 97.9 F 73 18 113/77 95 08/14/18 15:31 08/14/18 15:31 08/14/18 15:31 08/14/18 15:31 08/14/18 15:31 Results - Laboratory Findings CBC and BMP: 08/14/18 05:45 08/14/18 05:45 Abnormal lab findings: Abnormal lab results RBC 5.59 M/mcL (4.19-5.50) H 08/14/18 05:45 RDW 15.5 % (11.5-14.5) H 08/14/18 05:45 APTT 38.7 Seconds (26.0-36.0) H 08/13/18 04:35 POC Glucose 130 mg/dL (70-99) H 08/13/18 04:13
[2018-08-14 15:31] VITALS: BP 113/77
--- NOTE | 2018-08-14 19:07 | Discharge Summary ---
- NOTES TO OUTPATIENT PROVIDER Notes to Outpatient Provider: Mr. Chavez is a 48-year-old male patient who was originally admitted from emergency room with chief complaint of acute onset left -sided weakness for 2-3 hours. During his hospital stay, CT was obtained and of the head and is negative for any clots or any cranial pathology. Time of discharge he was back to baseline with no neurological deficits. Echo was completed in ejection fraction was 65% with mild LVDD. Carotid Dopplers bilateral showed nonstenotic plaque she is already on aspirin and Lipitor, which we will continue . Past history is positive for seizure. He does have a stimulator in the left upper chest it was felt that his TIA like symptoms was directly related to seizure activity. Patient is to follow-up with Dr. Ballesteros, neurologist in 1-2 weeks. Orders not resulted at time of discharge: none Date of Encounter: 08/14/18 Time of Encounter: 16:00 - Discharge Diagnosis (1) Acute CVA (cerebrovascular accident) Priority: Primary Status: Resolved Assessment and Plan: CTA head and CT of head was negative for blood clot or acute intracranial pathology and no longer has any neurological deficits and has returned to baseline (2) Seizures Priority: Secondary Status: Chronic Assessment and Plan: Long-standing history of seizure disorder with a vagal nerve stimulator implant in the left upper chest. During his hospital stay he did experience no seizure activity. (3) DVT prophylaxis Priority: Secondary Status: Resolved Hospital course: Mr. Chavez is a 48 year old male was admitted to the emergency room for acute neurological deficit with left arm weakness. His hospital course showed resolution within 2-3 hours of the acute onset of the head and CT head negative for clots and acute intracranial pathology patient is a history of seizure with a vagal nerve stimulator implantation was thought during his hospital course a.m. with evaluation per Dr. Bradford that his signs and symptoms was related to seizure. Not to stroke. Echo showed LVEF of 65% with mild LV DD Carotid Doppler bilaterally nonstenotic plaque Current medications do include aspirin and Lipitor daily, along with his seizure medications. Patient is back to baseline and is willing to be discharged today. He will be discharged ambulatory in stable condition and his follow-up with Dr. Bradford in 1 -2 weeks. Discharge discussed with: patient, family Time spent discussing smoking cessation with patient: 3 to 10 minutes - Time Spent with Patient Total time spent providing and/or coordinating discharge services: Less than 30 minutes Specific discharge activities: Schedule follow up appointment with Dr. Ballesteros office in 1-2 weeks - Discharge Medications Home Medications: ALPRAZolam [Xanax 1 MG Tablet] 1 mg PO TID 08/13/18 [History] Aspirin [Lo-Dose Aspirin EC] 81 mg PO DAILY 08/13/18 [History] Atorvastatin [Lipitor] 40 mg PO HS 08/13/18 [History] Lacosamide [Vimpat] 50 mg PO BID 08/13/18 [History] Lacosamide [Vimpat] 200 mg PO BID 08/13/18 [History] Omeprazole [PriLOSEC] 20 mg PO DAILY 08/13/18 [History] lamoTRIgine [Lamictal] 25 mg PO QAM 08/13/18 [History] lamoTRIgine [Lamictal] 50 mg PO HS 08/13/18 [History] lamoTRIgine [Lamictal] 200 mg PO BID 08/13/18 [History] Allergies/Adverse Reactions: 3 Allergy/AdvReac Type Severity Reaction Status Date / Time phenytoin [From Dilantin] Allergy See Verified 03/01/17 18:41 Comments tramadol Allergy See Verified 03/01/17 18:41 Comments Date of admission: 08/13/18 10:21 Primary care physician: Ángel Kaur MD Consults: Dr. Ballesteros neurologist Discharging clinician: Marva Moralez Anticipated date of discharge: 08/14/18 - Constitutional Vitals: Temp Pulse Resp BP Pulse Ox 97.9 F 73 18 113/77 95 08/14/18 15:31 08/14/18 15:31 08/14/18 15:31 08/14/18 15:31 08/14/18 15:31 General appearance: Present: A&O X 3, pleasant, no acute distress Exam: stable - Head Head exam: Present: atraumatic, normocephalic - Eye Eye exam: Present: PERRL, conjuntiva pink, sclera anicteric Pupils: Present: PERRL - Neck Neck exam general surgery: Present: supple, trachea midline. Absent: lymphadenopathy - Respiratory Respiratory exam: Present: CTAB. Absent: accessory muscle use, rales, rhonchi, wheezes - Cardiovascular Cardiovascular exam: Present: RRR, +S1, +S2. Absent: diastolic murmur, gallop, rubs, systolic murmur - GI/Abdominal GI/Abdominal exam: Present: normal bowel sounds, soft, no peritoneal signs. Absent: distended, tenderness - Extremities Exam Extremities exam: Present: full ROM, normal capillary refill, normal inspection , warm, radial pulses palpable and symmetrical. Absent: calf tenderness, cyanotic, pedal edema - Neurological Exam Neurological exam: Present: alert, CN II-XII intact, normal gait, oriented X3, reflexes normal, no focal deficits. Absent: pronater drift, facial droop, speech deficit - Skin Skin exam: Present: dry, intact - Patient Status Disposition: Home, Self-Care Condition: Good Functional capacity at discharge: independent ambulation Overall status at discharge: patient is back to baseline - Discharge Instructions Follow Up With: Ángel Kaur MD [Primary Care Provider] - Ronnie Bradford MD [Partnered Physician] - Additional Instructions: Follow-up with primary care provider and follow-up with Dr. Bradford. Please call Dr. Bradford's office to schedule appointment for follow-up in 1-2 weeks - Diet and Activity Activity: resume usual activities as tolerated
== END 2018-08-14 19:53 | disposition home or self-care (01) ==
LOC: EMEROOARM 04:10 → 2SOUTHHOLD 04:10 → 3BNU 19:10
PROVIDERS: ADMIT Student in an Organized Health Care Education/Training Program; ATTEND Family Medicine